=== PATIENT | male | born 2005 | race Caucasian/White ===

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

== ENCOUNTER → 2025-01-14 10:56 | Outpatient (BNVA) | payer BC, MEDICAID, SELFPAY | PROVIDERS: PCP Family Medicine; Visit Provider Family Medicine | DX: Z51.81 Encounter for therapeutic drug level monitoring (principal); Z13.6 Encounter for screening for cardiovascular disorders; R53.81 Other malaise; R53.83 Other fatigue | CPT/HCPCS: 80053; 80061; 84443; 85025 ==

== ENCOUNTER 2025-01-15 14:25 | Outpatient (CLI) | payer BC, MEDICAID, SELFPAY ==
--- NOTE | 2025-01-15 14:31 | XR_ITS ---
WS: [id number] XR knee RT 3V* [id number] REASON FOR EXAM: Right knee pain FINDINGS: No fracture or focal bone lesion. The joint spaces of the knee are intact and well preserved. There is minor osteophytosis of the inferior patella with mild subchondral sclerosis. XR/XR knee RT 3V* [id number] IMPRESSION: Possibly early osteoarthropathy in the patellofemoral joint.
--- NOTE | 2025-01-15 14:31 | XR_ITS ---
WS: [id number] XR lumbar spine 2-3V* [id number] REASON FOR EXAM: Lumbar radiculopathy FINDINGS: Relatively normal lumbar spinal curvatures. No significant compression deformity or focal lesion of the lumbar vertebrae. The intervertebral disc spaces are intact and relatively well preserved. No spondylolysis and no significant spondylolisthesis. XR/XR lumbar spine 2-3V* [id number] IMPRESSION: No significant abnormality.
== END 2025-01-15 14:26 | disposition home or self-care (01) ==
LOC: RAD 14:28
PROVIDERS: PCP Family Medicine; Visit Provider Family Medicine
DX: M25.561 Pain in right knee (principal); M54.16 Radiculopathy, lumbar region; M89.48 Other hypertrophic osteoarthropathy, other site; M22.2X1 Patellofemoral disorders, right knee
CPT/HCPCS: 72100; 73562

== ENCOUNTER 2025-02-04 07:23 | Outpatient (CLI) | payer BC, MEDICAID, SELFPAY ==
--- NOTE | 2025-02-04 08:00 | MR_ITS ---
WS: [id number] MRI LUMBAR SPINE NONCONTRAST TECHNIQUE: Sagittal T1, T2 and STIR imaging. Axial T1 and T2 imaging. CLINICAL INFORMATION: Lumbar radiculopathy COMPARISON: None. FINDINGS: Mild lumbar curve. No acute compression. A few Schmorl's nodes in the lower thoracic and upper lumbar spine. L1-L2: Mild facet arthropathy. Spinal canal and foramina are patent. L2-L3: No significant disc bulging. Mild facet arthropathy. Spinal canal and foramen are patent. L3-L4: Mild annular bulging. Mild LEFT foraminal narrowing. Mild facet arthropathy. L4-L5: Mild annular bulging with slight effacement of the ventral thecal sac. Mild LEFT greater than RIGHT foraminal narrowing. Mild facet arthropathy. L5-S1: Mild annular bulging with a tiny central protrusion and small annular fissure. Slight effacement of the ventral thecal sac. Mild LEFT and no significant RIGHT foraminal narrowing. Mild facet arthropathy. Visualized pelvic bony structures: Normal. Paravertebral soft tissues: Normal. MR/MR lumbar spine wo con* [id number] IMPRESSION: 1. Mild lumbar curve. No acute compression. A few Schmorl's nodes in the lower thoracic and upper lumbar spine. 2. Annular bulging L5-S1 with a shallow central protrusion and small annular f issure. Slight effacement of the ventral thecal sac. Mild LEFT foraminal narrow ing. 3. Mild annular bulging L4-5 with slight effacement of the ventral thecal sac and slight narrowing of the LEFT greater than RIGHT subarticular recess. 4. Mild bilateral foraminal narrowing L4-5 with small foraminal protrusions LE FT greater than RIGHT. 5. Mild annular bulging L3-4 with slight narrowing of the LEFT subarticular re cess. 6. Mild facet arthropathy L3-L5.
--- NOTE | 2025-02-04 08:45 | MR_ITS ---
WS: [id number] MRI RIGHT KNEE NONCONTRAST TECHNIQUE: Axial PD, coronal PD fat sat, coronal PD, sagittal PD, and sagittal PD fat-sat images obtained. CLINICAL INFORMATION: Right knee pain COMPARISON: None. FINDINGS: Distal quadriceps and patella tendons are intact. Hypertrophic patella. Normal ACL and PCL. Mild chondromalacia patella. Normal medial and patellar retinaculum. Normal popliteal fossa. Medial and lateral collateral ligaments are intact. Normal medial and lateral meniscus. No acute appearing meniscal tears. Normal bone marrow signal in the femoral condyles and tibial plateau. No other acute findings. MR/MR knee RT wo con* [id number] IMPRESSION: 1. Normal ACL and PCL. 2. Normal medial and lateral meniscus. No acute appearing meniscal tears. 3. Mild chondromalacia patella. Hypertrophic patella. 4. No other acute findings. Outbridge grading: grade II: blister-like swelling/fraying of articular cartila ge extending to surface
== END 2025-02-04 07:24 | disposition home or self-care (01) ==
LOC: RAD 07:24
PROVIDERS: PCP Family Medicine; Visit Provider Family Medicine
DX: M25.561 Pain in right knee (principal); M54.16 Radiculopathy, lumbar region; M22.41 Chondromalacia patellae, right knee; M22.8X1 Other disorders of patella, right knee; M24.19 Other articular cartilage disorders, other specified site
CPT/HCPCS: 72148; 73721